=== PATIENT | male | born 1995 | race American Indian/Alaskan Native ===

== ENCOUNTER 2019-08-19 16:02 | Emergency (ER) | payer SELFPAY ==
[2019-08-19 17:00] VITALS: BP 142/92; PULSE 106
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
[2019-08-19 18:39] LABS: ANION GAP 12.9; CHLORIDE,CL 105 mmol/L (101-111); SODIUM,NA 138 mmol/L (135-145)
== END 2019-08-19 19:44 ==
LOC: DL.ED 16:02
DX: S02.2XXA Fracture of nasal bones, initial encounter for closed fracture (principal); S30.1XXA Contusion of abdominal wall, initial encounter; F17.210 Nicotine dependence, cigarettes, uncomplicated; Y04.2XXA Assault by strike against or bumped into by another person, initial encounter
CPT/HCPCS: 36415; 70450; 70486; 72125; 73130-RT; 80053; 80305-QW; 81001; 85025; 99284-25

== ENCOUNTER 2023-09-29 20:38 | Emergency (ER) | payer SELFPAY ==
[2023-09-29 21:37] LABS: BASOPHILS PERCENT AUTO 0.2 % (0.0-1.0); EOSINOPHILS PERCENT AUTO 0.5 % (1.0-3.0); HEMATOCRIT 45.8 % (40.0-54.0); HEMOGLOBIN 15.4 g/dL (14.0-18.0); LYMPHOCYTES PERCENT AUTO 21.9 % (20.5-50.1); MEAN CORPUSCULAR HGB CONC 33.6 g/dL (33.0-35.0); MEAN CORPUSCULAR VOLUME 80.4 fL (80-100); NEUTROPHILS PERCENT AUTO 71.4 % (42.2-75.2); PLATELET COUNT,PLT 203 10^3/uL (150-450); WHITE BLOOD CELL COUNT,WBC 6.5 10^3/uL (5.0-10.0)
[2023-09-29] MEDS: Ondansetron 4 MG/2 ML SDV IVPUSH ONE (21:42)
[2023-09-29] MEDS: Sodium Chloride 0.9% 10 ML Syringe FLUSH PRN (21:42)
[2023-09-29] MEDS: Lactated Ringers 1,000 ML IV ONE (21:50)
[2023-09-29 21:58] LABS: A/G RATIO 0.9; ALANINE AMINOTRANSFERASE,ALT 51 U/L (16-63); ALBUMIN 4.1 g/dL (3.4-5.0); ALKALINE PHOSPHATASE 82 U/L (46-116); ANION GAP 15.1 mEq/L (7-13); ASPARTATE AMNIOTRANSFERASE,AST 32 U/L (15-37); BILIRUBIN TOTAL 0.5 mg/dL (0.2-1.0); BLOOD UREA NITROGEN,BUN 12 mg/dL (7-18); BUN/CREATININE RATIO 9.8 (No establ ref range); CALCIUM 9.1 mg/dL (8.5-10.1); CARBON DIOXIDE,CO2 27 mmol/L (21-32); CHLORIDE,CL 103 mmol/L (98-107); CREATININE 1.23 mg/dL (0.70-1.30); EST CRCL DRUG DOSING (CG) 106.87 mL/min; GLUCOSE RANDOM 116 mg/dL (70-99); LIPASE 28 U/L (16-77); MAGNESIUM 1.6 mg/dL (1.8-2.4); POTASSIUM,K 4.1 mmol/L (3.5-5.1); PROTEIN TOTAL,TP 8.8 g/dL (6.4-8.2); SODIUM,NA 141 mmol/L (136-145)
[2023-09-29 21:59] LABS: ESTIMATED GFR 82 mL/min (>=60); ETHANOL BLOOD MEDICAL < 3 mg/dL (0)
[2023-09-29 22:27] LABS: APPEARANCE,URINE CLEAR (CLEAR); BILIRUBIN,URINE NEGATIVE (NEGATIVE); COLOR,URINE DARK YELLOW (YELLOW); GLUCOSE,URINE NEGATIVE (NEGATIVE); KETONES,URINE TRACE (NEGATIVE); LEUKOCYTE ESTERASE,URINE NEGATIVE (NEGATIVE); NITRITE,URINE NEGATIVE (NEGATIVE); OCCULT BLOOD,URINE NEGATIVE (NEGATIVE); PH,URINE 5.5 (5.0-9.0); PROTEIN,URINE 30 (NEGATIVE); UROBILINOGEN,URINE 0.2 mg/dL (0.2-1.0)
[2023-09-29 22:38] LABS: AMPHETAMINES,URINE NEGATIVE (NEGATIVE); BARBITURATES,URINE NEGATIVE (NEGATIVE); BENZODIAZEPINE,URINE NEGATIVE (NEGATIVE); MDMA (ECSTASY), URINE NEGATIVE (NEGATIVE); METHADONE,URINE NEGATIVE (NEGATIVE); METHAMPHETAMINES,URINE NEGATIVE (NEGATIVE); OPIATES,URINE NEGATIVE (NEGATIVE); OXYCODONE,URINE NEGATIVE (NEGATIVE); PHENCYCLIDINE,URINE NEGATIVE (NEGATIVE); TCA,URINE NEGATIVE (NEGATIVE)
[2023-09-29 22:51] LABS: BACTERIA,URINE FEW /HPF (0-FEW/HPF); EPITHELIAL CELLS,URINE FEW /HPF (NOT SEEN); RBC,URINE 0-5 /HPF (0-5)
[2023-09-29 22:52] LABS: AMORPHOUS SEDIMENT,URINE FEW /HPF (NOT SEEN); MUCUS,URINE MANY /LPF (NOT SEEN)
[2023-09-29] MEDS: Prochlorperazine 5 MG Tab PO ONE (22:58)
[2023-09-29 23:03] LABS: CORONAVIRUS COVID-19 NAA NEGATIVE (NEGATIVE); INFLUENZA A NAA NEGATIVE (NEGATIVE); INFLUENZA B NAA POSITIVE (NEGATIVE); RESPIRATORY SYNCYTIAL VIR NAA NEGATIVE (NEGATIVE)
[2023-09-29] MEDS: Iopamidol 612 MG/ML 100 ML Bottle IVPUSH ONE (23:03)
[2023-09-29] MEDS: Morphine 2 MG/ML SYRINGE IVPUSH ONE (23:57)
[2023-09-30] MEDS: Piperacillin/Tazobactam 3.375 GM in Sodium Chloride 0.9% 100 ML IV ONE (00:12)
[2023-09-30 00:21] VITALS: BP 141/84; PULSE 47
[2023-09-30] MEDS: HYDROmorphone 1 MG/ML Syringe IVPUSH ONE (00:28)
[2023-09-30] MEDS: Take Home: Ondansetron 4 MG Tab.DIS, 5 Tab Pack PO ONE (00:34)
== END 2023-09-30 00:40 ==
LOC: DL.ED 20:38
DX: K35.80 Unspecified acute appendicitis (principal); J10.1 Influenza due to other identified influenza virus with other respiratory manifestations
CPT/HCPCS: 0241U; 36415; 74018; 74177; 80053; 80305; 80307; 81001; 83690; 83735; 85025; 96361; 96365; 96375; 99285; J1170; J2270; J2405; J2543; J3490; J7120; Q0164; Q9967